=== PATIENT | female | born 1975 | race Caucasian/White ===

== ENCOUNTER 2017-02-14 10:40 | Emergency (ER) | payer OTHER ==
[~2017-02-14] VITALS: Ht 170.2 cm; Wt 77.1 kg
--- NOTE | 2017-02-14 11:59 | PHYS DOC ---
General Chief Complaint: MULTIPLE COMPLAINTS Time Seen by MD: 11:14 Source: patient Exam Limitations: no limitations Problems: History of Present Illness Initial Comments Patient is a 41-year-old female who typically follows at [facility] who comes to the ED complaining of multiple complaints. Patient states that this morning 0900 while at home she began to notice alteration in the peripheral vision in her right eye. She states that she had a phone call during that time and was having trouble speaking clearly. When she got off the phone she tried to text her spouse but found that she lacked dexterity and had great difficulty in pushing the correct buttons to send a text. She says these symptoms lasted until 9:30 at which time they resolved completely. She did discuss these with her spouse after the fact and he asked her to come straight to the emergency department for evaluation. In the emergency department she denies any symptoms currently, her vision speech and dexterity issues have completely resolved. She also denies any headache during that time. She has not started any new medications she is generally healthy she takes valsartan for hypertension and Prilosec for GERD, on arrival her blood pressure is 149/96 but she is nervous and her other vital signs are completely normal. Timing/Duration: 1-3 hours, resolved prior to arrival Severity: moderate Modifying Factors: worse with movement Associated Symptoms: other Allergies: Coded Allergies: cefazolin (Verified Allergy, Intermediate, 02/14/17) Past Medical History Medical History: GERD, hypertension Surgical History: other (deviated septum) Family History Significant Family History: other (no family history of coronary artery disease , coagulopathy, or CVA, no MS history) Social History Smoker: non-smoker Alcohol: none Drugs: none Review of Systems Constitutional: denies chills, denies diaphoresis, denies fever, denies malaise EENTM: see HPI, denies eye pain, denies tearing, denies ear pain, denies ear discharge, denies nose pain, denies nose congestion, denies throat pain, denies throat swelling, denies mouth pain, denies mouth swelling Respiratory: denies cough, denies shortness of breath Cardiovascular: denies chest pain, denies palpitations, denies syncope Gastrointestinal: denies abdominal pain (department [facility]), denies diarrhea , denies nausea, denies vomiting Genitourinary: denies dysuria, denies frequency, denies hematuria Musculoskeletal: denies back pain, denies joint swelling, denies neck pain Psychiatric/Neurological: see HPI Hematologic/Lymphatic: denies blood clots, denies easy bleeding, denies easy bruising Physical Exam General Appearance: WD/WN, no apparent distress (tired) Eyes: bilateral eye normal inspection, bilateral eye PERRL, bilateral eye EOMI ( some places is) Ear, Nose, Throat: hearing grossly normal, normal ENT inspection, normal pharynx Neck: non-tender, full range of motion, supple Respiratory: normal breath sounds, no respiratory distress Cardiovascular: normal peripheral pulses, regular rate, rhythm Gastrointestinal: non tender, soft Back: no CVA tenderness, no vertebral tenderness Extremities: normal range of motion, non-tender, normal inspection, no pedal edema, no calf tenderness Neurologic/Psychiatric: pulp tester II-XII nml as tested, no motor/sensory deficits, alert, normal mood/affect, oriented x 3 Skin: normal color, warm/dry Orders, Labs, Meds Visual acuity: 20/20 each eye and bilaterally together with her corrective contact lenses BMP, Hb/Hct unremarkable PATIENT: RAUL FENTON ACCOUNT: [id number] : 1975 LOCATION: ER AGE: 41 SEX: F EXAM STATUS: PRE ER ORD. PHYSICIAN: STEVE OTERO DO REASON: R periph vision, dysarthria, b/l hand dexterity loss 9-9:30am PROCEDURE: CT HEAD WO CONTRAST CT of the head without contrast, 02/14/2017: History: Dysarthria, visual field disturbance The ventricles are within normal limits in size. There is no shift of the midline structures. There is no evidence of acute intracranial hemorrhage or mass effect. IMPRESSION: The CT of the head without contrast reveals no significant abnormality. PQRS Compliance Statement: One or more of the following individualized dose reduction techniques were utilized for this examination: 1. Automated exposure control 2. Adjustment of the mA and/or kV according to patient size 3. Use of iterative reconstruction technique DICTATED AND SIGNED BY: CAYETANO WHITE MD DATE: 02/14/17 1211 CC: NEO FLORIAN DO; STEVE OTERO DO ~ CRP 5.6 otherwise reassuring workup (CBC, BMP, d-dimer unremarkable) 1338: I discussed this pt and findings with her PCM Dr Florian, she is in agreement pt needs Neurologic referral and requested pt follow up at [facility] with her to recheck and obtain referral. Departure Time of Disposition: 13:30 Disposition: 01 HOME, SELF-CARE Diagnosis: Vision changes, dysarthria, NOS Condition: IMPROVED Patient Instructions: Medical Screening Exam Additional Instructions: No driving or operating machinery until cleared by your doctor. Aspirin 81 mg daily. Continue other current medications. Follow-up at [facility] for recheck and neurology referral. Take all records from today's visit to the appointment. Return to the ED with new or changing symptoms. STEVE OTERO DO Feb 14, 2017 11:59
[2017-02-14 12:09] LABS: HEMOGLOBIN ISTAT 15.6 gm/dL; POTASSIUM ISTAT 3.8 mmol/L (3.5-5.0)
--- NOTE | 2017-02-14 12:16 | RAD ---
CT of the head without contrast, 02/14/2017: History: Dysarthria, visual field disturbance The ventricles are within normal limits in size. There is no shift of the midline structures. There is no evidence of acute intracranial hemorrhage or mass effect. IMPRESSION: The CT of the head without contrast reveals no significant abnormality. RS Compliance Statement: One or more of the following individualized dose reduction techniques were utilized for this examination: 1. Automated exposure control 2. Adjustment of the mA and/or kV according to patient size 3. Use of iterative reconstruction technique
[2017-02-14 12:22] LABS: BASO # 0.1 x10^3/uL (0.0-0.2); BASO % 1 % (0-3); EOS # 0.3 x10^3/uL (0.0-0.7); EOS % 3 % (0-3); HEMATOCRIT 45.6 % (36.0-47.0); HEMOGLOBIN 15.8 g/dL (12.0-15.5); LYMPH # 2.5 x10^3/uL (1.0-4.8); LYMPH % 24 % (24-48); MEAN CORPUSCULAR HEMOGLOBIN 31 pg (25-35); MEAN CORPUSCULAR HGB CONC 35 g/dL (31-37); MEAN CORPUSCULAR VOLUME 89 fL (79-100); MONO # 0.7 x10^3/uL (0.0-1.1); MONO % 7 % (0-9); NEUT # 6.8 x10^3uL (1.8-7.7); NEUT % 66 % (31-73); PLATELET COUNT 351 x10^3/uL (140-400); RED BLOOD COUNT 5.11 x10^6/uL (3.50-5.40); RED CELL DISTRIBUTION WIDTH 12.7 % (11.5-14.5); WHITE BLOOD COUNT 10.4 x10^3/uL (4.0-11.0)
[2017-02-14 13:50] VITALS: BP 157/99
== END 2017-02-14 14:00 | disposition home or self-care (01) ==
LOC: ER 10:40
DX: H57.8 Other specified disorders of eye and adnexa (principal); R47.1 Dysarthria and anarthria; K21.9 Gastro-esophageal reflux disease without esophagitis; I10 Essential (primary) hypertension; Z88.8 Allergy status to other drugs, medicaments and biological substances
CPT/HCPCS: 36415; 70450; 80047; 83605; 85025; 85379; 86140; 99285-25

== ENCOUNTER 2018-07-03 11:35 | Emergency (ER) | payer OTHER ==
[~2018-07-03] VITALS: Ht 170.2 cm; Wt 80.0 kg
[2018-07-03 11:48] VITALS: BP 149/100
--- NOTE | 2018-07-03 12:29 | PHYS DOC ---
Past History Past Medical History: GERD, Hypertension Past Surgical History: Other Alcohol Use: Occasionally Drug Use: None Adult General Chief Complaint Chief Complaint: ANIMAL BITE HPI HPI 43-year-old female presents to the emergency department after an exposure to a bat. Patient states this happened this morning during daylight hours. Patient states she was in her laundry room when a bat flew in fluid down low to the ground close to her left calf. She felt the bat contact her however she's not sure if she was bitten or scratched. She cannot identify a wound near the area where she was touched. She was able to capture the bat and bring that to the local custodial officer who sent the bat off for testing.[] Review of Systems Review of Systems All other systems were reviewed and found to be within normal limits, except as documented in this note. Current Medications Current Medications Current Medications Medications (Trade) Dose Ordered Sig/Per Start Time Stop Time Status Last Admin Dose Admin Rabies Vaccine Human Diploid Cell (Imovax Rabies 2.5 Unit / ml) 1 ml ONCE ONCE 07/03/18 12:30 07/03/18 12:31 07/03/18 12:19 1 ML Allergies Allergies Allergies Coded Allergies Type Severity Reaction Last Updated Verified cefazolin Allergy Intermediate 02/14/17 Yes Physical Exam Physical Exam Constitutional: Well developed, well nourished, no acute distress, non-toxic appearance. []] Neck: Normal range of motion, no tenderness, supple, no stridor. [] Cardiovascular:Heart rate regular rhythm, no murmur [] Lungs & Thorax: Bilateral breath sounds clear to auscultation [] Abdomen: Bowel sounds normal, soft, no tenderness, no masses, no pulsatile masses. [] Skin: I did not appreciate a visible scratch or bite mariam on the left leg[] Back: No tenderness, no CVA tenderness. [] Extremities: No tenderness, no cyanosis, no clubbing, ROM intact, no edema. [] Neurologic: Alert and oriented X 3, normal motor function, normal sensory function, no focal deficits noted. [] Psychologic: Very anxious. [] Current Patient Data Vital Signs Vital Signs Date Time Temp Pulse Resp B/P (MAP) Pulse Ox O2 Delivery O2 Flow Rate FiO2 07/03/18 11:48 97.5 68 18 100 Room Air EKG EKG [] Radiology/Procedures Radiology/Procedures [] Course & Med Decision Making Course & Med Decision Making Pertinent Labs and Imaging studies reviewed. (See chart for details) [ED course: Evaluation reveals a healthy 43-year-old female in absolutely no distress. There is concern for the risk secondary to the bat flying around during the daylight hours and then dying shortly thereafter. I reviewed post exposure prophylaxis guidelines and given that I'm unsure when the bat will come back from the pathologist I think the patient needs to at least start with the rabies vaccine. I think rabies immune globulin is unnecessary since there is no visible wound. Patient was given the initial rabies vaccination today. Dragon Disclaimer Dragon Disclaimer This electronic medical record was generated, in whole or in part, using a voice recognition dictation system. Departure Departure: Impression: Primary Impression: Exposure to rabies Disposition: 01 HOME, SELF-CARE Condition: STABLE Referrals: NEO GALINDO DO (PCP) Patient Instructions: Rabies, Rabies Vaccine suspension for injection, VIS, Rabies - CDC Additional Instructions: Follow with your custodial officer early next week to see if the results of the bat testing her back. Obviously if the tests positive for rabies she will need to come back for further injections. If you are informed that the bat was negative for rabies there is no need for further vaccination. KANDY GARAY DO Jul 03, 2018 12:29
[2018-07-03] MEDS ORDERED: RABIES VIRUS VACC PF 2.5 UNIT / 1 ML VIAL. VAX IM ONE (12:30)
== END 2018-07-03 12:53 | disposition home or self-care (01) ==
LOC: ER 11:35
DX: Z20.3 Contact with and (suspected) exposure to rabies (principal); K21.9 Gastro-esophageal reflux disease without esophagitis; I10 Essential (primary) hypertension; Z88.1 Allergy status to other antibiotic agents
CPT/HCPCS: 90471; 90675; 99283